=== PATIENT | male | born 1945 | race Caucasian/White ===

== ENCOUNTER 2018-06-27 08:59 | Emergency (ER) | payer MEDICARE ==
[2018-06-27 09:08] VITALS: BP 112/80
--- NOTE | 2018-06-27 09:16 | UC ---
Complaint Male HPI - HPI Summary HPI Summary: Patient is a 73 year old gentleman , who present today to the urgent care with UTI symptoms for past 1 week. He reports burning with urination along with increased frequency and urgency. no blood in urine. Denies any fevers or chills. Denies any abdominal pain , nausea or vomiting , diarrhea or constipation. he has been using the nystatin/triamcinolone topical ointment which was prescribed to him by his primary care physician sometime back without much relief he has a history of UTI in the past and has also seen urology, last evaluation was 2 years ago and he denies any diagnosis of prostrate pathology. - History of Current Complaint Chief Complaint: UCGU Stated Complaint: POSS UTI Time Seen by Provider: 06/27/18 09:13 Hx Obtained From: Patient Pain Intensity: 8 - Allergies/Home Medications Allergies/Adverse Reactions: Allergies Allergy/AdvReac Type Severity Reaction Status Date / Time No Known Allergies Allergy Verified 06/27/18 09:08 PMH/Surg Hx/FS Hx/Imm Hx - Additional Past Medical History Additional PMH: hypertension Diabetes Atrial fibrillation on warfarin Previously Healthy: Yes - Surgical History Surgical History: Yes Surgery Procedure, Year, and Place: CATARACT LEFT EYE -4 YRS [facility] right eye - Social History Alcohol Use: Rare Substance Use Type: None Smoking Status (MU): Never Smoked Tobacco Review of Systems All Other Systems Reviewed And Are Negative: Yes Constitutional: Positive: Negative Skin: Positive: Negative Eyes: Positive: Negative ENT: Positive: Negative Respiratory: Positive: Negative Gastrointestinal: Positive: Negative. Negative: Abdominal Pain Genitourinary: Positive: Dysuria, Frequency, Urgency. Negative: Hematuria Motor: Positive: Negative Neurovascular: Positive: Negative Musculoskeletal: Positive: Negative Neurological: Positive: Negative Psychological: Positive: Negative Is Patient Immunocompromised?: No Physical Exam - Summary Physical Exam Summary: Physical Exam: Const: Appears well. No signs of apparent distress present. Alert and oriented x 3. Musculo: Walks with a normal gait. Head/Face: Atraumatic, normocephalic on inspection. Eyes: EOMI and PERRLA in both eyes. Conjunctivae clear. No discharge noted ENT: Hearing normal Respiratory: Respirations are unlabored. Lungs clear to auscultation bilaterally, no wheezing , rhonchi or rales noted . CVS: Regular rate and Rhythm, S1S2 normal , no murmurs identified. exam: patient declined Extremities: Peripheral circulation is grossly normal. Pulses 2+ Abdomen : Soft non tender , nondistended , Bowel sounds present . No guarding , rebound tenderness or rigidity noted. Skin: No lesions or rash located on the upper extremities or on the lower extremities. Neuro: Cranial nerves II to XII intact, motor and sensory intact. DTR Intact bilaterally. Mood is normal. Affect is normal. Triage Information Reviewed: Yes Vital Signs: Initial Vital Signs Temp 96.8 F 06/27/18 09:02 Pulse 87 06/27/18 09:02 Resp 17 06/27/18 09:02 BP 112/80 06/27/18 09:02 Pulse Ox 98 06/27/18 09:02 Vital Signs Reviewed: Yes Complaint Male Course/Dx - Course Course Of Treatment: During the visit today, we obtained urine analysis which showed 2+ leuk esterase,2+ blood, trace ketones and 2+ proteinuria . We discussed the findings and further plan to treat it as UTI. I will prescribe the medication to the pharmacy . Patient expressed understanding . - Differential Dx/Diagnosis Provider Diagnosis: UTI (urinary tract infection) Discharge - Sign-Out/Discharge Documenting (check all that apply): Patient Departure All imaging exams completed and their final reports reviewed: No Studies - Discharge Plan Condition: Stable Disposition: HOME Prescriptions: Nitrofurantoin Monohyd/M-Cryst [Macrobid 100 mg Capsule] 100 mg PO BID 5 Days # 10 cap Patient Education Materials: Urinary Tract Infection in Men (ED) Referrals: Yun Freire MD [Primary Care Provider] - 1 Week Additional Instructions: Please start taking the medication as prescribed to the pharmacy . keep yourself hydrated Follow up with your primary care doctor in 1 week Return to Urgent care / ER if symptoms get worse. - Billing Disposition and Condition Condition: STABLE Disposition: Home
--- NOTE | 2018-06-28 15:36 | UC ---
- Progress Note Progress Note: 06/28/2018 final Urine culture: no growth. Please call back patient and notify of results and advised to stop antibiotic. Thank you Kathie Berg PA-C Course/Dx - Diagnoses Provider Diagnoses: UTI (urinary tract infection) Discharge - Sign-Out/Discharge Documenting (check all that apply): Post-Discharge Follow Up All imaging exams completed and their final reports reviewed: No Studies - Discharge Plan Condition: Stable Disposition: HOME Prescriptions: Nitrofurantoin Monohyd/M-Cryst [Macrobid 100 mg Capsule] 100 mg PO BID 5 Days # 10 cap Patient Education Materials: Urinary Tract Infection in Men (ED) Referrals: Yun Freire MD [Primary Care Provider] - 1 Week Additional Instructions: Please start taking the medication as prescribed to the pharmacy . keep yourself hydrated Follow up with your primary care doctor in 1 week Return to Urgent care / ER if symptoms get worse. - Billing Disposition and Condition Condition: STABLE Disposition: Home
== END 2018-06-27 10:07 | disposition home or self-care (01) ==
LOC: UCEAST 08:59
DX: N39.0 Urinary tract infection, site not specified (principal); I10 Essential (primary) hypertension; E11.9 Type 2 diabetes mellitus without complications
CPT/HCPCS: 81003; 87086; 99202; G0463

== ENCOUNTER 2022-05-27 16:10 | Inpatient (IN) ==
[2022-05-27] MEDS ORDERED: Lactated Ringers 1000 ml BAG 1,000 ML IV ONE (16:16)
[2022-05-27] MEDS ORDERED: Morphine 4 MG/ML VIAL (1 ml) IV ONE (16:16)
[2022-05-27 17:21] LABS: ABS Lymphocytes 1.4 10^3/ul (1.0-4.8); ABS Monocytes 1.3 10^3/ul (0-0.8); ABS Neutrophils 13.5 10^3/ul (1.5-7.7); Eosinophil % 0.1 %; Hematocrit 53 % (42-52); Hemoglobin 17.9 g/dL (14.0-18.0); Lymphocyte % 8.5 %; Mean Corpuscular HGB Conc 34 g/dL (31-36); Mean Corpuscular Hemoglobin 33 pg (27-31); Mean Corpuscular Volume 98 fL (80-94); Mean Platelet Volume 8.7 fL (7.4-10.4); Nucleated Red Blood Cells % 0.1; Platelet Count 113 10^3/uL (150-450); Red Blood Count 5.46 10^6 /uL (4.18-5.48); Red Cell Distribution Width 16 % (10-15); White Blood Count 16.2 10^3/uL (3.5-10.8)
[2022-05-27 18:11] LABS: ALT 20 U/L (7-52); Albumin/Globulin Ratio 1.5 (1-3); Alkaline Phosphatase 57 U/L (35-149); Blood Urea Nitrogen 29 mg/dL (6-24); CO2 Carbon Dioxide 23 mmol/L (22-32); Calcium 9.4 mg/dL (8.6-10.3); Chloride 101 mmol/L (101-111); Creatine Kinase 514 U/L (10-223); Creatinine, Serum 1.53 mg/dL (0.67-1.17); Globulin 2.6 g/dL (2-4); Glucose 202 mg/dL (70-100); Sodium 138 mmol/L (135-145); Total Protein 6.6 g/dL (6.4-8.9); eGFR CKD-EPI 46.8 (>60)
[2022-05-27 18:17] LABS: Anion Gap 14 mmol/L (2-11)
[2022-05-27 18:26] LABS: INR 1.51 (0.88-1.18)
[2022-05-27] MEDS ORDERED: HYDROmorphone 1 MG/1 ML SYRINGE IV SLOW PU PRN (19:56)
[2022-05-27] MEDS ORDERED: HYDROmorphone 0.5 MG/0.5 ML SYRINGE IV SLOW PU PRN (19:56)
[2022-05-27] MEDS: Lactated Ringers 1000 ml BAG 1,000 ML IV SCH (20:19)
[2022-05-27] MEDS ORDERED: Ondansetron 4 mg VIAL 2 MG/ML 2 ml VIAL IV PRN (20:39)
[2022-05-27] MEDS ORDERED: Metoprolol Tartrate 5 mg VIAL 5 ml VIAL (1 mg/ml) IV PRN (20:46)
[2022-05-27] MEDS ORDERED: Phytonadione Oral Solution 5 MG/25 ML UDC PO ONE (21:19)
[2022-05-27 21:20] LABS: Cholesterol 122 mg/dL; HDL Cholesterol 59.8 mg/dL; LDL Cholesterol 40 mg/dL; Triglycerides 111 mg/dL
[2022-05-27] MEDS ORDERED: Dextrose 50% Syringe 50 ml 25 GM/50 ML SYRINGE IV PUSH PRN (21:34)
[2022-05-27] MEDS ORDERED: Magnesium Sulfate 2 gm BAG 2 GM/50 ML BAG IVPB ONE (21:58)
[2022-05-27] MEDS ORDERED: Heparin 5000 UNITS/ML 1 mL VIAL SUBCUT SCH (22:00)
[2022-05-27] MEDS ORDERED: Digoxin IV 0.5 MG/2 ML AMP (0.25 MG/ML) IV SLOW PU ONE (22:11)
[2022-05-27 22:25] LABS: Vitamin D Total 25(OH) 67.7 ng/mL (20-50)
[2022-05-27 22:29] LABS: Magnesium 2.1 mg/dL (1.9-2.7)
[2022-05-28] MEDS ORDERED: Lactated Ringers 1000 ml BAG 500 ML IV ONE (00:06)
[2022-05-28 01:26] LABS: High Sensitivity Troponin 1 Hr 23 pg/mL (<20)
[2022-05-28 01:57] LABS: Potassium Redraw 4.8 mmol/L (3.5-5.0)
[2022-05-28] MEDS ORDERED: Metoprolol Tartrate 5 mg VIAL 5 ml VIAL (1 mg/ml) IV PRN (03:35)
[2022-05-28] MEDS: Lactated Ringers 1000 ml BAG 1,000 ML IV SCH ×2 (04:54→11:27)
[2022-05-28 06:30] LABS: Hematocrit 48 % (42-52); Hemoglobin 16.2 g/dL (14.0-18.0); Mean Corpuscular HGB Conc 34 g/dL (31-36); Mean Corpuscular Hemoglobin 33 pg (27-31); Mean Corpuscular Volume 98 fL (80-94); Red Blood Count 4.91 10^6 /uL (4.18-5.48); Red Cell Distribution Width 16 % (10-15); White Blood Count 11.5 10^3/uL (3.5-10.8)
[2022-05-28 06:32] LABS: ABS Eosinophils 0.1 10^3/ul (0-0.6); ABS Lymphocytes 1.3 10^3/ul (1.0-4.8); ABS Monocytes 0.8 10^3/ul (0-0.8); ABS Neutrophils 9.3 10^3/ul (1.5-7.7); Eosinophil % 0.7 %; Mean Platelet Volume 8.8 fL (7.4-10.4); Nucleated Red Blood Cells % 0.2
[2022-05-28 06:33] LABS: INR 1.44 (0.88-1.18)
[2022-05-28 06:46] LABS: Albumin 3.3 g/dL (3.2-5.2); Albumin/Globulin Ratio 1.5 (1-3); Calcium 8.5 mg/dL (8.6-10.3); Creatinine, Serum 1.48 mg/dL (0.67-1.17); Globulin 2.2 g/dL (2-4); Magnesium 2.2 mg/dL (1.9-2.7); Phosphorus 4.4 mg/dL (2.5-5.0); Potassium 4.7 mmol/L (3.5-5.0); Total Protein 5.5 g/dL (6.4-8.9); eGFR CKD-EPI 48.7 (>60)
[2022-05-28 07:37] LABS: Platelet Count 81 10^3/uL (150-450)
[2022-05-28] MEDS ORDERED: Acetaminophen IV 1 GM/100ML 1,000 MG/100 ML BAG IV ONE (08:30)
[2022-05-28] MEDS ORDERED: Enoxaparin 40 MG/0.4 ML SYR SUBCUT ONE (09:12)
[2022-05-28] MEDS ORDERED: Sulfur Hexaflouride MICROSPHR 25 MG VIAL ONE (09:53)
[2022-05-28] MEDS: Febuxostat 40 mg TAB (NF) PO SCH (10:38)
[2022-05-28] MEDS: Empagliflozin 25 MG TAB PO SCH (10:38)
[2022-05-28 12:23] LABS: Urine Appearance Clear; Urine Bilirubin Negative (Negative); Urine Blood 1+ (Negative); Urine Color Yellow; Urine Glucose 3+(>=500 mg/dL) (Negative); Urine Ketones 1+ (Negative); Urine Nitrite Negative (Negative); Urine Protein 2+(100 mg/dL) (Negative); Urine Specific Gravity 1.029 (1.002-1.030); Urine Urobilinogen Negative (Negative)
[2022-05-28 12:25] LABS: Urine Bacteria Absent (Absent); Urine Red Blood Cell Trace(0-2/hpf) (Absent); Urine Squamous Epithelial Cell Present (Absent); Urine White Blood Cell Trace(0-5/hpf) (Absent)
[2022-05-29] MEDS ORDERED: Lactated Ringers 1000 ml BAG 1,000 ML IV SCH ×2 (00:01→15:00)
[2022-05-29 06:24] LABS: ABS Eosinophils 0.1 10^3/ul (0-0.6); ABS Monocytes 0.8 10^3/ul (0-0.8); ABS Neutrophils 7.9 10^3/ul (1.5-7.7); Eosinophil % 1.5 %; Hematocrit 45 % (42-52); Hemoglobin 15.3 g/dL (14.0-18.0); Lymphocyte % 10.2 %; Mean Corpuscular HGB Conc 34 g/dL (31-36); Mean Corpuscular Hemoglobin 33 pg (27-31); Mean Corpuscular Volume 98 fL (80-94); Mean Platelet Volume 9.3 fL (7.4-10.4); Nucleated Red Blood Cells % 0.1; Platelet Count 86 10^3/uL (150-450); Red Blood Count 4.62 10^6 /uL (4.18-5.48); Red Cell Distribution Width 15 % (10-15); White Blood Count 9.8 10^3/uL (3.5-10.8)
[2022-05-29 06:48] LABS: Calcium 8.4 mg/dL (8.6-10.3); Creatinine, Serum 1.43 mg/dL (0.67-1.17); Potassium 4.4 mmol/L (3.5-5.0); eGFR CKD-EPI 50.8 (>60)
[2022-05-29 07:49] LABS: INR 1.21 (0.88-1.18)
[2022-05-29] MEDS: Febuxostat 40 mg TAB (NF) PO SCH (09:44)
[2022-05-29] MEDS: Empagliflozin 25 MG TAB PO SCH (09:45)
[2022-05-29] MEDS ORDERED: ceFAZolin *3* GM in NS PREMIX 3 GM/100 ML BAG IV ONE (12:09)
[2022-05-29] MEDS ORDERED: Famotidine IV 10 MG/ML 2 ml VIAL (20 mg) ONE (13:57)
[2022-05-29] MEDS ORDERED: Famotidine IV 10 MG/ML 2 ml VIAL (20 mg) IV ONE (14:05)
[2022-05-29] MEDS ORDERED: Lidocaine 2% PF 5 ML VIAL ONE (14:18)
[2022-05-29] MEDS ORDERED: Midazolam 2 mg/2 ml VIAL 1 mg/ml 2 ml VIAL (2 mg) ONE (14:18)
[2022-05-29] MEDS ORDERED: Propofol 10 MG/ML 20 ML BTL ONE (14:18)
[2022-05-29] MEDS ORDERED: fentaNYL 250 mcg/5 ml 50 MCG/ML 5 ml VIAL (250 MCG) ONE (14:18)
[2022-05-29] MEDS ORDERED: ROPIVACAINE 5 MG/ML 30 ML BTL (0.5%) ONE (14:57)
[2022-05-29 15:10] LABS: INR 1.29 (0.88-1.18)
[2022-05-29] MEDS ORDERED: Sodium Chloride 0.9% 20 ML ONE (15:33)
[2022-05-29] MEDS ORDERED: Ondansetron 4 mg VIAL 2 MG/ML 2 ml VIAL ONE (15:34)
[2022-05-29] MEDS ORDERED: Dexamethasone IV 4 MG/ML VIAL 1 ml VIAL ONE ×2 (15:34→15:51)
[2022-05-29] MEDS ORDERED: Acetaminophen IV 1 GM/100ML 1,000 MG/100 ML BAG IV ONE (15:55)
[2022-05-29] MEDS ORDERED: Phenylephrine 40 mcg/mL 10mL (400mcg) SYRINGE ONE (16:19)
[2022-05-29] MEDS ORDERED: Ondansetron 4 mg VIAL 2 MG/ML 2 ml VIAL IV PRN (16:24)
[2022-05-29] MEDS ORDERED: Naloxone 0.4 mg VIAL 0.4 mg/ml 1 ml VIAL IV PRN (16:24)
[2022-05-29] MEDS ORDERED: fentaNYL 100 mcg/2 ml 50 MCG/ML VIAL IV PRN (16:24)
[2022-05-29] MEDS ORDERED: Metoprolol Tartrate 5 mg VIAL 5 ml VIAL (1 mg/ml) ONE (18:13)
[2022-05-29] MEDS ORDERED: Metoprolol Tartrate 5 mg VIAL 5 ml VIAL (1 mg/ml) IV PRN (18:14)
[2022-05-29] MEDS ORDERED: Haloperidol 5 mg/ml SDV IV/IM 5 MG/ML AMP IV SLOW PU ONE (18:57)
[2022-05-29] MEDS ORDERED: Haloperidol 5 mg/ml SDV IV/IM 5 MG/ML AMP ONE (19:03)
[2022-05-29] MEDS ORDERED: HYDROmorphone 1 MG/1 ML SYRINGE IV SLOW PU PRN (20:33)
[2022-05-29] MEDS ORDERED: HYDROmorphone 0.5 MG/0.5 ML SYRINGE IV SLOW PU PRN (21:00)
[2022-05-29] MEDS: Lactated Ringers 1000 ml BAG 1,000 ML IV SCH (22:15)
[2022-05-30] MEDS: ceFAZolin 1 GM X 3 DOSES POST-OP Q8H (AddVan) IVPB SCH ×3 (00:12→16:52)
[2022-05-30 06:55] LABS: Albumin 3.3 g/dL (3.2-5.2); Albumin/Globulin Ratio 1.6 (1-3); Calcium 8.4 mg/dL (8.6-10.3); Creatinine, Serum 1.36 mg/dL (0.67-1.17); Globulin 2.1 g/dL (2-4); Potassium 4.6 mmol/L (3.5-5.0); Total Bilirubin 0.7 mg/dL (0.2-1.0); Total Protein 5.4 g/dL (6.4-8.9); eGFR CKD-EPI 53.9 (>60)
[2022-05-30 07:18] LABS: ABS Lymphocytes 0.6 10^3/ul (1.0-4.8); ABS Monocytes 0.4 10^3/ul (0-0.8); ABS Neutrophils 6.6 10^3/ul (1.5-7.7); Hematocrit 43 % (42-52); Lymphocyte % 8.2 %; Mean Corpuscular HGB Conc 33 g/dL (31-36); Mean Corpuscular Hemoglobin 33 pg (27-31); Mean Corpuscular Volume 100 fL (80-94); Mean Platelet Volume 8.9 fL (7.4-10.4); Platelet Count 93 10^3/uL (150-450); Red Blood Count 4.26 10^6 /uL (4.18-5.48); Red Cell Distribution Width 16 % (10-15); White Blood Count 7.6 10^3/uL (3.5-10.8)
[2022-05-30] MEDS ORDERED: Enoxaparin 40 MG/0.4 ML SYR SUBCUT SCH (09:00)
[2022-05-30] MEDS: Febuxostat 40 mg TAB (NF) PO SCH (09:38)
[2022-05-30] MEDS: Empagliflozin 25 MG TAB PO SCH (09:38)
[2022-05-30] MEDS ORDERED: Magnesium Hydroxide LIQ 30 ML UDC PO PRN (14:53)
[2022-05-30] MEDS: Polyethylene Glycol 3350 17 GM PACKET PO SCH (15:10)
[2022-05-30] MEDS: Warfarin DAILY REMINDER **NOTE FOLLOW UP SCH (18:04)
[2022-05-31 05:44] LABS: ABS Lymphocytes 0.8 10^3/ul (1.0-4.8); ABS Monocytes 0.8 10^3/ul (0-0.8); ABS Neutrophils 10.4 10^3/ul (1.5-7.7); Hematocrit 42 % (42-52); Hemoglobin 14.2 g/dL (14.0-18.0); Lymphocyte % 6.9 %; Mean Corpuscular HGB Conc 34 g/dL (31-36); Mean Corpuscular Hemoglobin 33 pg (27-31); Mean Corpuscular Volume 96 fL (80-94); Mean Platelet Volume 8.4 fL (7.4-10.4); Nucleated Red Blood Cells % 0.1; Platelet Count 106 10^3/uL (150-450); Red Blood Count 4.34 10^6 /uL (4.18-5.48); Red Cell Distribution Width 16 % (10-15)
[2022-05-31 05:54] LABS: INR 1.23 (0.88-1.18)
[2022-05-31 06:26] LABS: Calcium 8.6 mg/dL (8.6-10.3); Creatinine, Serum 1.15 mg/dL (0.67-1.17); Magnesium 1.7 mg/dL (1.9-2.7); Potassium 4.2 mmol/L (3.5-5.0)
[2022-05-31] MEDS ORDERED: Magnesium Sulfate IV 3 GM in NS 0.9% 100 ml BAG 100 ML IVPB ONE (08:06)
[2022-05-31] MEDS: Empagliflozin 25 MG TAB PO SCH (08:44)
[2022-05-31] MEDS: Febuxostat 40 mg TAB (NF) PO SCH (08:44)
[2022-05-31] MEDS: Polyethylene Glycol 3350 17 GM PACKET PO SCH (08:45)
[2022-05-31] MEDS: Warfarin DAILY REMINDER **NOTE FOLLOW UP SCH (17:34)
[2022-06-01 06:04] LABS: ABS Eosinophils 0.1 10^3/ul (0-0.6); ABS Lymphocytes 1.2 10^3/ul (1.0-4.8); ABS Monocytes 0.7 10^3/ul (0-0.8); ABS Neutrophils 6.6 10^3/ul (1.5-7.7); Eosinophil % 0.9 %; Hematocrit 41 % (42-52); Lymphocyte % 13.7 %; Mean Corpuscular HGB Conc 34 g/dL (31-36); Mean Corpuscular Hemoglobin 33 pg (27-31); Mean Corpuscular Volume 97 fL (80-94); Mean Platelet Volume 8.6 fL (7.4-10.4); Nucleated Red Blood Cells % 0.2; Platelet Count 104 10^3/uL (150-450); Red Blood Count 4.23 10^6 /uL (4.18-5.48); Red Cell Distribution Width 15 % (10-15); White Blood Count 8.6 10^3/uL (3.5-10.8)
[2022-06-01 06:09] LABS: INR 1.47 (0.88-1.18)
[2022-06-01 06:21] LABS: Calcium 8.4 mg/dL (8.6-10.3); Creatinine, Serum 1.01 mg/dL (0.67-1.17); Magnesium 1.9 mg/dL (1.9-2.7); Phosphorus 2.8 mg/dL (2.5-5.0); Potassium 3.8 mmol/L (3.5-5.0); eGFR CKD-EPI 77.1 (>60)
[2022-06-01] MEDS ORDERED: Magnesium Sulfate IV 1GM/100ML 1 GM/100 ML BAG IV ONE (07:11)
[2022-06-01] MEDS ORDERED: Potassium Chloride LIQUID 20 MEQ/15 ML LIQUID PO ONE (07:12)
[2022-06-01] MEDS: Empagliflozin 25 MG TAB PO SCH (08:42)
[2022-06-01] MEDS: Polyethylene Glycol 3350 17 GM PACKET PO SCH (08:44)
[2022-06-01] MEDS: Febuxostat 40 mg TAB (NF) PO SCH (08:44)
[2022-06-01] MEDS: Warfarin DAILY REMINDER **NOTE FOLLOW UP SCH (16:28)
[2022-06-02 05:52] LABS: ABS Eosinophils 0.1 10^3/ul (0-0.6); ABS Lymphocytes 1.2 10^3/ul (1.0-4.8); ABS Monocytes 0.6 10^3/ul (0-0.8); ABS Neutrophils 5.4 10^3/ul (1.5-7.7); Eosinophil % 1.9 %; Hematocrit 41 % (42-52); Hemoglobin 13.8 g/dL (14.0-18.0); Lymphocyte % 16.1 %; Mean Corpuscular HGB Conc 34 g/dL (31-36); Mean Corpuscular Hemoglobin 34 pg (27-31); Mean Corpuscular Volume 100 fL (80-94); Mean Platelet Volume 8.5 fL (7.4-10.4); Nucleated Red Blood Cells % 0.2; Platelet Count 106 10^3/uL (150-450); Red Blood Count 4.06 10^6 /uL (4.18-5.48); Red Cell Distribution Width 15 % (10-15); White Blood Count 7.4 10^3/uL (3.5-10.8)
[2022-06-02 05:55] LABS: INR 1.86 (0.88-1.18)
[2022-06-02 06:09] LABS: Calcium 8.2 mg/dL (8.6-10.3); Creatinine, Serum 1.06 mg/dL (0.67-1.17); Magnesium 1.8 mg/dL (1.9-2.7); Phosphorus 3.1 mg/dL (2.5-5.0); eGFR CKD-EPI 72.7 (>60)
[2022-06-02] MEDS ORDERED: Magnesium Sulfate 2 gm BAG 2 GM/50 ML BAG IVPB ONE (07:17)
[2022-06-02] MEDS: Empagliflozin 25 MG TAB PO SCH (08:38)
[2022-06-02] MEDS: Febuxostat 40 mg TAB (NF) PO SCH (08:38)
[2022-06-02] MEDS: Polyethylene Glycol 3350 17 GM PACKET PO SCH (09:05)
[2022-06-02] MEDS ORDERED: Digoxin IV 0.5 MG/2 ML AMP (0.25 MG/ML) IV SLOW PU ONE ×2 (09:21→09:44)
[2022-06-02] MEDS: Insulin GLARGINE 100 un/ml 10 ml VIAL SUBCUT SCH (11:06)
[2022-06-02] MEDS: Warfarin DAILY REMINDER **NOTE FOLLOW UP SCH (17:27)
[2022-06-03 06:20] LABS: ABS Eosinophils 0.1 10^3/ul (0-0.6); ABS Lymphocytes 1.2 10^3/ul (1.0-4.8); ABS Monocytes 0.6 10^3/ul (0-0.8); ABS Neutrophils 6.4 10^3/ul (1.5-7.7); Eosinophil % 1.4 %; Hematocrit 41 % (42-52); Hemoglobin 13.9 g/dL (14.0-18.0); Lymphocyte % 14.3 %; Mean Corpuscular HGB Conc 34 g/dL (31-36); Mean Corpuscular Hemoglobin 33 pg (27-31); Mean Corpuscular Volume 98 fL (80-94); Mean Platelet Volume 8.9 fL (7.4-10.4); Nucleated Red Blood Cells % 0.2; Platelet Count 132 10^3/uL (150-450); Red Blood Count 4.17 10^6 /uL (4.18-5.48); Red Cell Distribution Width 16 % (10-15); White Blood Count 8.4 10^3/uL (3.5-10.8)
[2022-06-03 06:27] LABS: INR 2.1 (0.88-1.18)
[2022-06-03 06:38] LABS: Calcium 8.3 mg/dL (8.6-10.3); Creatinine, Serum 1.04 mg/dL (0.67-1.17); Magnesium 1.9 mg/dL (1.9-2.7); Potassium 4.1 mmol/L (3.5-5.0); eGFR CKD-EPI 74.4 (>60)
[2022-06-03] MEDS: Insulin GLARGINE 100 un/ml 10 ml VIAL SUBCUT SCH (09:48)
[2022-06-03] MEDS: Febuxostat 40 mg TAB (NF) PO SCH (09:51)
[2022-06-03] MEDS: Empagliflozin 25 MG TAB PO SCH (09:51)
[2022-06-03] MEDS: Polyethylene Glycol 3350 17 GM PACKET PO SCH (09:52)
[2022-06-03] MEDS: Warfarin DAILY REMINDER **NOTE FOLLOW UP SCH (18:09)
[2022-06-04 06:23] LABS: Hematocrit 42 % (42-52); Hemoglobin 14.3 g/dL (14.0-18.0); Mean Corpuscular HGB Conc 34 g/dL (31-36); Mean Corpuscular Hemoglobin 34 pg (27-31); Mean Corpuscular Volume 99 fL (80-94); Red Blood Count 4.21 10^6 /uL (4.18-5.48); Red Cell Distribution Width 16 % (10-15); White Blood Count 8.9 10^3/uL (3.5-10.8)
[2022-06-04 06:57] LABS: Calcium 8.5 mg/dL (8.6-10.3); Magnesium 1.8 mg/dL (1.9-2.7); Potassium 4.4 mmol/L (3.5-5.0)
[2022-06-04 07:02] LABS: Creatinine, Serum 1.13 mg/dL (0.67-1.17); eGFR CKD-EPI 67.4 (>60)
[2022-06-04 07:32] LABS: ABS Eosinophils 0.1 10^3/ul (0-0.6); ABS Monocytes 0.7 10^3/ul (0-0.8); ABS Neutrophils 7.1 10^3/ul (1.5-7.7); Nucleated Red Blood Cells % 0.2; Platelet Count 78 10^3/uL (150-450)
[2022-06-04 08:37] LABS: INR 2.4 (0.88-1.18)
[2022-06-04] MEDS: Insulin GLARGINE 100 un/ml 10 ml VIAL SUBCUT SCH (08:40)
[2022-06-04] MEDS: Empagliflozin 25 MG TAB PO SCH (08:41)
[2022-06-04] MEDS: Febuxostat 40 mg TAB (NF) PO SCH (08:41)
[2022-06-04] MEDS: Polyethylene Glycol 3350 17 GM PACKET PO SCH (08:43)
[2022-06-04] MEDS ORDERED: Digoxin IV 0.5 MG/2 ML AMP (0.25 MG/ML) IV SLOW PU ONE (10:14)
[2022-06-04] MEDS ORDERED: Magnesium Sulfate 2 gm BAG 2 GM/50 ML BAG IVPB ONE (10:36)
[2022-06-04 11:21] LABS: Folate 9.62 ng/mL (5.90-24.80)
[2022-06-04] MEDS: Warfarin DAILY REMINDER **NOTE FOLLOW UP SCH (17:58)
[2022-06-05] MEDS ORDERED: Digoxin IV 0.5 MG/2 ML AMP (0.25 MG/ML) IV SLOW PU ONE (02:56)
[2022-06-05 06:49] LABS: ABS Lymphocytes 0.9 10^3/ul (1.0-4.8); ABS Monocytes 0.7 10^3/ul (0-0.8); ABS Neutrophils 9.3 10^3/ul (1.5-7.7); Eosinophil % 0.2 %; Hematocrit 42 % (42-52); Hemoglobin 14.4 g/dL (14.0-18.0); Lymphocyte % 7.9 %; Mean Corpuscular HGB Conc 35 g/dL (31-36); Mean Corpuscular Hemoglobin 34 pg (27-31); Mean Corpuscular Volume 98 fL (80-94); Mean Platelet Volume 8.4 fL (7.4-10.4); Nucleated Red Blood Cells % 0.1; Platelet Count 41 10^3/uL (150-450); Red Blood Count 4.23 10^6 /uL (4.18-5.48); Red Cell Distribution Width 16 % (10-15); White Blood Count 10.8 10^3/uL (3.5-10.8)
[2022-06-05] MEDS ORDERED: Iodixanol (CONTRAST) 320 MG/ML 100 ML SDV IV ONE (07:06)
[2022-06-05 07:14] LABS: Albumin 3.2 g/dL (3.2-5.2); Albumin/Globulin Ratio 1.2 (1-3); Calcium 8.6 mg/dL (8.6-10.3); Creatinine, Serum 1.18 mg/dL (0.67-1.17); Globulin 2.6 g/dL (2-4); Phosphorus 3.4 mg/dL (2.5-5.0); Potassium 4.7 mmol/L (3.5-5.0); Total Bilirubin 1.4 mg/dL (0.2-1.0); Total Protein 5.8 g/dL (6.4-8.9)
[2022-06-05 08:34] LABS: High Sensitivity Troponin 1 Hr 31 pg/mL (<20)
[2022-06-05 08:46] LABS: Activated Partial Thrombo Time 35.7 seconds (26.0-38.0); INR 2.56 (0.88-1.18)
[2022-06-05 08:52] VITALS: BP 147/120
== END 2022-06-05 09:00 | disposition short-term general hospital (02) | DRG 480 ==
LOC: ED 16:10 → EDHOLD 19:46 → SUATTDRO 19:46 → EDHOLD 05-28 00:18 → MEDTELE 05-28 01:01 → SSU 05-29 18:30 → MEDTELE 06-04 14:26 → ICU 06-05 07:11
PROVIDERS: ADMIT Student in an Organized Health Care Education/Training Program; ATTEND Internal Medicine Hematology & Oncology